=== PATIENT | female | born 1980 | race Two or more races ===

== ENCOUNTER 2019-02-15 06:59 | Inpatient (IN) | payer SELFPAY ==
[~2019-02-15] VITALS: Ht 154.9 cm; Wt 75.5 kg
[2019-02-15 07:43] LABS: Eosinophils # (auto) 0.3 uL; Hematocrit 32.1 % (36.0-46.0); Hemoglobin 9.5 g/dL (12.2-16.2); Lymphocytes # (auto) 1.2 uL; Mean Corpuscular Hemoglobin 17.8 pg (28.0-32.0); Monocytes # (auto) 0.4 uL
[2019-02-15 07:45] LABS: Basophils # (auto) 0.1 uL; Basophils % (auto) 0.7 % (0.0-2.0); Eosinophils % (auto) 3.9 % (0.0-7.0); Lymphocytes % (auto) 15.3 % (10.0-50.0); Mean Corpuscular Hgb Conc. 29.6 g/dL (32.0-36.0); Mean Corpuscular Volume 60.1 fL (80.0-100.0); Monocytes % (auto) 4.8 % (0.0-12.0); Neutrophils # (auto) 5.7 uL; Neutrophils % (auto) 75.3 % (37.0-80.0); Platelet Count (auto) 295 10^3/uL (140-450); Red Blood Cells 5.34 10^6/uL (4.0-5.20); Red Cell Distribution Width 19.4 % (11.8-14.3); White Blood Cell 7.6 10^3/uL (4.4-10.8)
[2019-02-15 08:01] LABS: Albumin 3.7 g/dL (3.4-5.0); BUN/Creatinine Ratio 17.4; Calcium 8.9 mg/dL (8.5-10.1)
[2019-02-15 08:04] LABS: Bilirubin, Total 0.5 mg/dL (0.2-1.0); Total Protein 7.9 g/dL (6.4-8.2)
[2019-02-15 08:09] LABS: Urine Amorphous Crystal MANY /hpf (None Seen); Urine Bacteria FEW /hpf (None Seen); Urine Blood Negative /uL (Negative); Urine Mucus FEW (None Seen); Urine Specific Gravity 1.024 (1.001-1.035); Urine WBC 13 /hpf (0 - 5)
[2019-02-15] MEDS ORDERED: SODIUM CHLORIDE 0.9% 1,000 ML IV ONE ×2 (09:11)
[2019-02-15] MEDS ORDERED: KETOROLAC TROMETH 30 MG/ML 1ML VIAL IV ONE (09:15)
[2019-02-15] MEDS ORDERED: ONDANSETRON HCL 4 MG/2 ML VIAL IV ONE (09:15)
[2019-02-15] MEDS ORDERED: TAMSULOSIN HYDROCHLORIDE 0.4 MG CAP PO ONE ×2 (09:45→18:38)
[2019-02-15] MEDS ORDERED: ACETAMINOPHEN 500 MG TAB PO PRN (09:45)
[2019-02-15] MEDS ORDERED: cefTRIAXone 1GM/50ML D5W 50 ML IV ONE (09:45)
[2019-02-15] MEDS ORDERED: PROMETHAZINE HCL 25 MG/ML 1ML IV PRN (09:45)
[2019-02-15] MEDS: FAMOTIDINE 20 MG TAB PO SCH ×2 (10:59→20:52)
[2019-02-15] MEDS: amLODIPine BESYLATE 5 MG TAB PO SCH (10:59)
[2019-02-15 11:10] VITALS: BP 139/86
[2019-02-15] MEDS: traMADol HCL 50 MG TAB PO PRN (11:54)
[2019-02-15 12:45] VITALS: BP 139/86
[2019-02-15] MEDS: SODIUM CHLORIDE 0.9% 1,000 ML IV SCH ×2 (14:30→20:53)
--- NOTE | 2019-02-15 14:56 | NUR ---
MS admit from ER CHANTAL CHARLES admitted to tele/MS after SBAR received. Patient oriented to DAVID JIMÉNEZ RN primary RN,[facility] unit, room 289, bed B, and unit policies regarding patient care and visiting hours. Patient weighed by bedscale and encouraged to call if they need something. All questions and concerns addressed, patient verbalized understanding.
--- NOTE | 2019-02-15 15:46 | NUR ---
Received call back from Dr Everett made aware pt is still c/o pain and nauseous and only has PO pain meds. Per Dr Everett will review chart and place order in. Will continue to monitor.
[2019-02-15 16:27] VITALS: BP 138/78
[2019-02-15] MEDS: MORPHINE SULFATE 4 MG/ML SYR/VIAL IV PRN ×2 (16:57→20:51)
--- NOTE | 2019-02-15 17:51 | NUR ---
Received call from Dr Hogan urologist. Made aware of pt's condition and CT abd/pelvis results. Per Dr Hogan will review chart and place orders. Will continue to monitor.
[2019-02-15] MEDS ORDERED: MANNITOL 20% SOLN 100 gm/500ml 62.5 ML IV ONE ×2 (18:15→19:00)
--- NOTE | 2019-02-15 18:54 | NUR ---
Flomax Flomax had to be override in med pyxis due to system being down. Flomax 0.8mg PO administered as ordered per Dr Hogan.
[2019-02-15] MEDS ORDERED: [UNRECOGNIZED DRUG - OTHER] IV ONE (19:00)
--- NOTE | 2019-02-15 19:18 | NUR ---
Patient care and report handed off to Clover ARANGO, made aware that will initiated one time dose of Mannitol.
[2019-02-15] MEDS ORDERED: MANNITOL FTV 25% 12.5 GM/50 ML 50 ML IV ONE (19:33)
--- NOTE | 2019-02-15 19:45 | NUR ---
MANNITOL One time dose of Mannitol initiated. Had to override on med pyxis because 1st bottle removed bursted open and unusable so 1st bottle wasted.
--- NOTE | 2019-02-15 20:03 | NUR ---
received pt from day rn poc reviewed
--- NOTE | 2019-02-15 21:00 | NUR ---
pain relieved with med given, pt continue to strain urine
[2019-02-15 22:00] VITALS: BP 114/77
[2019-02-16] MEDS: MORPHINE SULFATE 4 MG/ML SYR/VIAL IV PRN ×4 (00:56→23:40)
[2019-02-16 05:00] VITALS: BP 121/78
[2019-02-16] MEDS: SODIUM CHLORIDE 0.9% 1,000 ML IV SCH ×2 (05:33→15:33)
--- NOTE | 2019-02-16 05:57 | NUR ---
resting with eyes closed call light within reach
--- NOTE | 2019-02-16 07:20 | NUR ---
Opening Shift Note Assumed care of patient, awake and alert. No S/S of distress/SOB or pain. Instructed on POC and to call for assist PRN, will continue to monitor for changes Q1hr and PRN.
[2019-02-16 08:00] VITALS: BP 127/78
[2019-02-16] MEDS: amLODIPine BESYLATE 5 MG TAB PO SCH (09:20)
[2019-02-16] MEDS: cefTRIAXone 1GM/50ML D5W 50 ML IV SCH (09:20)
[2019-02-16] MEDS: FAMOTIDINE 20 MG TAB PO SCH ×2 (09:20→21:06)
[2019-02-16 09:39] VITALS: BP 127/78
[2019-02-16 12:52] VITALS: BP 123/79
[2019-02-16 16:37] VITALS: BP 131/85
[2019-02-16] MEDS: TAMSULOSIN HYDROCHLORIDE 0.4 MG CAP PO SCH (17:10)
--- NOTE | 2019-02-16 19:05 | NUR ---
Opening Shift Note Assumed care of pt., awake and alert x4, sitting up in bed watching television. No S/S of distress or SOB, no pain noted or reported at this time. Respirations are even and unlabored on room air. Updated pt. on POC and instructed to call for assistance as needed, pt. verbalized understanding. Bed locked in lowest position, side rails up x2, call light within reach. Will continue to monitor q1hr and PRN.
--- NOTE | 2019-02-16 21:00 | NUR ---
IV removal Right hand IV DC'd with clean sterile technique, catheter fully intact. Pressure dressing applied to site. Patient tolerated well.
[2019-02-16] MEDS: traMADol HCL 50 MG TAB PO PRN (21:07)
[2019-02-16 22:00] VITALS: BP 141/86
--- NOTE | 2019-02-16 23:15 | NUR ---
IV insertion IV access obtained, via clean sterile technique by inserting 22 gauge catheter at right forearm after 1 attempt. IV secured properly. No trauma to site. Patient tolerated well.
[2019-02-16] MEDS: TEMAZEPAM 15 MG CAP PO PRN (23:40)
[2019-02-16] MEDS: PROMETHAZINE HCL 25 MG/ML 1ML IV PRN (23:40)
--- NOTE | 2019-02-16 23:55 | NUR ---
Luque catheter insertion Patient assessed and determined to be in need of luque catheter. Order obtained from Edison VALDOVINOS. Patient educated on catheter and reason for insertion. All questions answered. Luque catheter 16 guage British inserted with clean sterile technique. Patient tolerated well.
[2019-02-17] MEDS: SODIUM CHLORIDE 0.9% 1,000 ML IV SCH ×3 (00:59→22:44)
[2019-02-17 05:00] VITALS: BP 127/86
--- NOTE | 2019-02-17 05:55 | NUR ---
Paged Dr. Hogan Regarding Gomez catheter cancelled order.
[2019-02-17] MEDS: MORPHINE SULFATE 4 MG/ML SYR/VIAL IV PRN ×3 (06:13→19:00)
--- NOTE | 2019-02-17 07:50 | NUR ---
Opening Shift Note Assumed care of patient, awake, alert, and oriented x4. Patient has 7/10 complaints of abdominal pain at this time. Patient has IV in right forearm 22g running NS at 100mL/hr, patient tolerating well. Patient is on room air with no S/S of distress/SOB. Patient has luque patent and draining clear yellow urine, patient tolerating well. Instructed on POC and to call for assist PRN, will continue to monitor for changes Q1hr and PRN. Bed in lowest locked position, call light within reach.
[2019-02-17 08:00] VITALS: BP 129/79
[2019-02-17 08:23] VITALS: BP 129/79
[2019-02-17] MEDS: FAMOTIDINE 20 MG TAB PO SCH ×2 (09:35→22:44)
[2019-02-17] MEDS: amLODIPine BESYLATE 5 MG TAB PO SCH (09:35)
[2019-02-17 09:55] LABS: INR 0.93 (0.9-1.15); Partial Thromboplastin Time 27.4 sec (23.78-33.04)
[2019-02-17] MEDS: cefTRIAXone 1GM/50ML D5W 50 ML IV SCH (10:06)
[2019-02-17 12:35] VITALS: BP 125/83
[2019-02-17] MEDS ORDERED: MANNITOL 20% SOLN 100 gm/500ml 62.5 ML IV ONE (14:00)
[2019-02-17] MEDS ORDERED: IOHEXOL 300 MG/ML 100ML BOTTLE IJ ONE (14:15)
[2019-02-17 16:39] VITALS: BP 122/75
[2019-02-17] MEDS: TAMSULOSIN HYDROCHLORIDE 0.4 MG CAP PO SCH (17:44)
--- NOTE | 2019-02-17 18:41 | NUR ---
END OF SHIFT PATIENT RESTING IN BED. NO S/S OF DISTRESS. INSTRUCTED PATIENT TO CALL PRN. BED IN LOWEST LOCKED POSITION, CALL LIGHT WITHIN REACH. ENDORSED CARE TO NBA OSWALD.
--- NOTE | 2019-02-17 18:59 | NUR ---
Luque catheter dc'd Order to discontinue luque catheter. Luque dc'd with clean technique following deflation of balloon. Patient tolerated well with no complaints of pain.
[2019-02-17] MEDS: TEMAZEPAM 15 MG CAP PO PRN (22:24)
[2019-02-17 22:25] VITALS: BP 130/85
[2019-02-18] MEDS: MORPHINE SULFATE 4 MG/ML SYR/VIAL IV PRN ×3 (04:17→20:36)
[2019-02-18 04:49] VITALS: BP 124/78
[2019-02-18] MEDS: SODIUM CHLORIDE 0.9% 1,000 ML IV SCH ×2 (07:33→17:36)
--- NOTE | 2019-02-18 07:50 | NUR ---
Opening Shift Note Assumed care of patient, awake, alert, and oriented x4. Patient has IV in right forearm 22g running NS at 100mL/hr, patient tolerating well. Patient is on room air with no S/S of distress/SOB. Instructed on POC and to call for assist PRN, will continue to monitor for changes Q1hr and PRN. Bed in lowest locked position, call light within reach.
[2019-02-18 08:00] VITALS: BP 121/76
[2019-02-18 08:30] VITALS: BP 121/76
[2019-02-18] MEDS: FAMOTIDINE 20 MG TAB PO SCH ×2 (10:08→21:58)
[2019-02-18] MEDS: cefTRIAXone 1GM/50ML D5W 50 ML IV SCH (10:08)
[2019-02-18] MEDS: amLODIPine BESYLATE 5 MG TAB PO SCH (10:08)
[2019-02-18 11:08] LABS: BUN/Creatinine Ratio 12.3; Calcium 8.1 mg/dL (8.5-10.1); Potassium 3.6 mmol/L (3.5-5.1)
--- NOTE | 2019-02-18 12:28 | NUR ---
Nutrition Assessment Notes Please see attached link for complete assessment Est. Needs ABW [id number] kcal (23-25 kcal/kgBW), 61-67 gms pro (1.0-1.1 gm/kgABW). Will continue to monitor pertinent labs and reassessed prn Addendum: 02/18/19 at [address] Amended: Links added.
[2019-02-18 12:34] VITALS: BP 124/83
[2019-02-18] MEDS: KETOROLAC TROMETH 30 MG/ML 1ML VIAL IV PRN (14:24)
[2019-02-18 16:48] VITALS: BP 130/83
--- NOTE | 2019-02-18 17:37 | NUR ---
SHOWER PATIENT SHOWERING. NO S/S OF DISTRESS OR DIZZINESS NOTED.
[2019-02-18] MEDS: TAMSULOSIN HYDROCHLORIDE 0.4 MG CAP PO SCH (17:56)
--- NOTE | 2019-02-18 20:30 | NUR ---
IV insertion IV access obtained, via clean sterile technique by inserting 22 gauge catheter in the left forearm after 1 attempt. IV secured properly. No trauma to site. Right forearm IV removed due to infiltration. Patient tolerated procedure well.
[2019-02-18] MEDS: DOCUSATE SOD 100 MG CAP PO SCH (21:57)
[2019-02-18 22:18] VITALS: BP 123/81
[2019-02-19] MEDS: SODIUM CHLORIDE 0.9% 1,000 ML IV SCH ×2 (03:59→13:52)
[2019-02-19] MEDS: MORPHINE SULFATE 4 MG/ML SYR/VIAL IV PRN ×3 (04:49→13:56)
[2019-02-19 05:52] VITALS: BP 108/69
--- NOTE | 2019-02-19 07:30 | NUR ---
Opening Shift Note Assumed care of patient, awake and alert. No S/S of distress/SOB. Pain reported to abdomen. Pain management options discussed with patient. Instructed on POC and to call for assist PRN, will continue to monitor for changes Q1hr and PRN.
[2019-02-19 08:00] VITALS: BP 128/85
[2019-02-19 09:00] VITALS: BP 128/85
[2019-02-19] MEDS: cefTRIAXone 1GM/50ML D5W 50 ML IV SCH (09:32)
[2019-02-19] MEDS: amLODIPine BESYLATE 5 MG TAB PO SCH (09:33)
[2019-02-19] MEDS: DOCUSATE SOD 100 MG CAP PO SCH ×2 (09:33→21:57)
[2019-02-19] MEDS: FAMOTIDINE 20 MG TAB PO SCH ×2 (09:33→21:57)
[2019-02-19 12:45] VITALS: BP 139/76
[2019-02-19] MEDS: PROMETHAZINE HCL 25 MG/ML 1ML IV PRN (13:56)
[2019-02-19] MEDS ORDERED: MANNITOL 20% SOLN 100 gm/500ml 62.5 ML IV ONE (14:00)
[2019-02-19 16:32] VITALS: BP 129/81
[2019-02-19] MEDS: TAMSULOSIN HYDROCHLORIDE 0.4 MG CAP PO SCH (17:54)
[2019-02-19] MEDS: KETOROLAC TROMETH 30 MG/ML 1ML VIAL IV PRN (17:55)
[2019-02-19] MEDS: HYDROcodone-ACET 5/325MG TAB PO PRN (20:13)
[2019-02-19] MEDS: TEMAZEPAM 15 MG CAP PO PRN (21:57)
[2019-02-19 22:16] VITALS: BP 122/78
[2019-02-20 05:27] VITALS: BP 128/77
[2019-02-20] MEDS: SODIUM CHLORIDE 0.9% 1,000 ML IV SCH ×2 (05:54→09:33)
[2019-02-20] MEDS: HYDROcodone-ACET 5/325MG TAB PO PRN (05:54)
--- NOTE | 2019-02-20 06:10 | NUR ---
PATIENT PASSED STONE SMALL DARK COLORED STONE NOTED IN URINE STRAINER. PATIENT STATES SHE PASSED A STONE. PLACED IN SPECIMEN CUP.
[2019-02-20 08:00] VITALS: BP 113/79
--- NOTE | 2019-02-20 08:00 | NUR ---
OPENING NOTE ASSUMED PT CARE FROM NOC SHIFT NURSE. PT IS SITTING QUIETLY IN BED. PT STATES SHE IS IN SOME PAIN, BUT IS TOLERABLE. NO S/S OF DISTRESS OF SOB NOTED. DISCUSSED D/C AND POC WITH PT. SAFETY MEASURES MAINTAINED. WILL CONTINUE TO MONITOR Q1HR AND PRN.
[2019-02-20] MEDS: cefTRIAXone 1GM/50ML D5W 50 ML IV SCH (08:34)
[2019-02-20 08:39] VITALS: BP 113/79
[2019-02-20] MEDS ORDERED: CIPR-173 PO (08:54)
[2019-02-20] MEDS ORDERED: AML5T PO (08:54)
[2019-02-20 09:41] VITALS: BP 113/79
[2019-02-20] MEDS: FAMOTIDINE 20 MG TAB PO SCH (10:00)
[2019-02-20] MEDS: amLODIPine BESYLATE 5 MG TAB PO SCH (10:00)
[2019-02-20] MEDS: DOCUSATE SOD 100 MG CAP PO SCH (10:00)
--- NOTE | 2019-02-20 10:32 | NUR ---
Discharge instructions given as ordered. Encouraged to call [facility]. [place] and [facility] information given to patient. All questions and concerns addressed. Patient verbalized understanding. IV removed with catheter intact, pressure dressing applied. Patient ambulated to vehicle with all personal belongings, accompanied by family member. No distress noted at time of departure.
== END 2019-02-20 10:44 | disposition home or self-care (01) | DRG 690 ==
LOC: ER 06:59 → OVERFLOW 09:33 → WEST WING 11:15
PROVIDERS: ADMIT Internal Medicine; ATTEND Internal Medicine
DX: N13.6 Pyonephrosis (principal); D50.9 Iron deficiency anemia, unspecified; I10 Essential (primary) hypertension; K57.30 Diverticulosis of large intestine without perforation or abscess without bleeding; B96.1 Klebsiella pneumoniae [K. pneumoniae] as the cause of diseases classified elsewhere; E66.9 Obesity, unspecified; Z68.31 Body mass index [BMI] 31.0-31.9, adult; Z82.49 Family history of ischemic heart disease and other diseases of the circulatory system; Z87.442 Personal history of urinary calculi
CPT/HCPCS: 36415; 74018; 74176; 74177; 80048; 80053; 81001; 81025; 82150; 82360; 83690; 85025; 85610; 85730; 87086; 87088; 87186; 96361; 96374; 96375; G0378; J0696; J1885; J2405